=== PATIENT | male | born 1950 | race Two or more races ===

== ENCOUNTER 2024-07-05 21:56 | Inpatient (IN) | payer OTHER ==
[~2024-07-05] VITALS: Ht 175.3 cm; Wt 87.3 kg
--- NOTE | 2024-07-05 22:28 | ED.PDOC ---
Altered Mental Status HPI Comments 73-year-old male who came to ER via EMS for altered level consciousness. Per EMS, patient resides at a [facility], does have history of dementia and diabetes. At around noon today, patient had a ground level fall, unwitnessed, given morphine for the pain. Shortly afterwards patient noted to be more altered than usual, progressively worsening, to the point that he became unresponsive to verbal stimuli. Upon arrival of paramedics, patient is still unresponsive, so patient was given 2mg + 2mg of Narcan while en route to the ER Chief Complaint: ALOC Time Seen by MD: 22:34 Reviewed Notes: Crystal Mounter Notes Allergies: Coded Allergies: NO KNOWN ALLERGIES (Unverified , 07/05/24) Information Source: Emergency Med Personnel Mode of Arrival: EMS Severity: Unable to Care for Self, Unresponsive Timing: Hours Duration: Since onset Prehospital treatment: Oxygen, Treatment Quality: Decreased Alertness, Change in Behavior Recent: Trauma History of: Dementia Past Medical History PAST MEDICAL HISTORY: AFIB, Dementia, DM Surgical History: Unobtainable Family History Family History: Unobtainable Social History Smoker: Unobtainable Alcohol: Unobtainable Drugs: Unobtainable Lives In: Assisted Care Unable to Obtain due to: Altered Mental Status, Dementia Physical Exam General Appearance: No Apparent Distress, Normal HEENT: Normal ENT Inspection, Pharynx Normal, TMs Normal Neck: Full Range of Motion, Non-Tender, Normal, Normal Inspection Respiratory: Chest Non-Tender, Lungs Clear, No Accessory Muscle Use, No Respiratory Distress, Normal Breath Sounds Cardiovascular: No Edema, No JVD, No Murmur, No Gallop, Normal Peripheral Pulses, Regular Rate/Rhythm Breast Exam: Deferred Gastrointestinal: No Organomegaly, Non Tender, No Pulsatile Mass, Normal Bowel Sounds, Soft Genitalia: Deferred Pelvic: Deferred Rectal: Deferred Extremities: No calf tenderness, Normal capillary refill, Normal inspection, Normal range of motion, Non-tender, No pedal edema Musculoskeletal : Apperance: Normal Neurologic: Alert, debt and budget counselor II-XII nml as Tested, No Motor Deficits, Normal Affect, Normal Mood, No Sensory Deficits Cerebellar Function: Normal Reflexes: Normal Skin: Dry, Normal Color, Warm Lymphatic: No Adenopathy Was a procedure done? Was a procedure done?: No Differential Diagnosis (ALOC) Differential Diagnosis: Encephalopathy, Closed Head Injury, CVA, Other (Dementia) X-Ray, Labs, Meds, VS Vital Signs Date Time Temp Pulse Resp B/P (MAP) Pulse Ox O2 Delivery O2 Flow Rate FiO2 07/06/24 00:15 90 13 69/44 (52) 97 07/06/24 00:00 88 12 65/44 (51) 97 07/05/24 23:45 91 11 73/46 (55) 07/05/24 23:33 95 11 97 Simple Mask* 6 50 07/05/24 23:30 92 13 73/50 (58) 98 07/05/24 23:10 96 16 59/40 (46) 07/05/24 23:00 108 14 69/43 (52) 07/05/24 22:43 96.9 125 18 100/69 (79) 91 96.9 07/05/24 21:58 152 07/05/24 21:56 98.5 144 16 100/64 (76) 96 98.5 Lab Test 07/05/24 23:15 07/05/24 22:25 Range/Units Troponin I High Sensitivity 31 32 </=54 ng/L White Blood Count 7.8 4.4-10.8 10^3/uL Red Blood Count 4.87 4.5-5.90 10^6/uL Hemoglobin 15.3 13.5-17.5 g/dL Hematocrit 46.3 41.0-53.0 % Mean Corpuscular Volume 95.1 80.0-100.0 fL Mean Corpuscular Hemoglobin 31.4 28.0-32.0 pg Mean Corpuscular Hemoglobin Concent 33.0 32.0-36.0 g/dL Red Cell Distribution Width 15.3 H 11.8-14.3 % Platelet Count 208 140-450 10^3/uL Mean Platelet Volume 8.3 6.9-10.8 fL Neutrophils (%) (Auto) 87.5 H 37.0-80.0 % Lymphocytes (%) (Auto) 7.2 L 10.0-50.0 % Monocytes (%) (Auto) 4.7 0.0-12.0 % Eosinophils (%) (Auto) 0.2 0.0-7.0 % Basophils (%) (Auto) 0.4 0.0-2.0 % Neutrophils # (Auto) 6.8 1.6-8.6 10 ^3/uL Lymphocytes # (Auto) 0.6 0.4-5.4 10 ^3/uL Monocytes # (Auto) 0.4 0-1.3 10 ^3/uL Eosinophils # (Auto) 0 0-0.8 10 ^3/uL Basophils # (Auto) 0 0-0.2 10 ^3/uL Nucleated Red Blood Cells 0.1 % Sodium Level 137 136-145 mmol/L Potassium Level 3.5 3.5-5.1 mmol/L Chloride Level 99 98-107 mmol/L Carbon Dioxide Level 23 20-31 mmol/L Anion Gap 15 5-15 Blood Urea Nitrogen 13 9-23 mg/dL Creatinine 1.37 H 0.700-1.30 mg/dL Glomerular Filtration Rate Calc 55 >90 mL/min BUN/Creatinine Ratio 9.5 L 10.0-20.0 Serum Glucose 145 H 74-106 mg/dL Lactic Acid Level 2.5 *H 0.4-2.0 mmol/L Calcium Level 9.4 8.7-10.4 mg/dL Total Bilirubin 0.8 0.2-1.0 mg/dL Aspartate Amino Transferase (AST) 22 13-40 U/L Alanine Aminotransferase (ALT) < 9 7-40 U/L Alkaline Phosphatase 173 H 46-116 U/L B-Type Natriuretic Peptide 377.58 0-100 pg/mL Total Protein 6.6 5.7-8.2 g/dL Albumin 3.6 3.2-4.8 g/dL Current Medications Medications (Trade) Dose Ordered Sig/Dianna Route Start Time Stop Time Status Last Admin Sodium Chloride 2,000 ml @ 1,000 mls/hr Q2H ONCE IV 07/05/24 23:00 07/06/24 00:59 07/05/24 23:00 Cefepime HCl 50 ml @ 12.5 mls/hr ONCE ONCE IV 07/05/24 23:45 07/06/24 03:44 07/06/24 00:08 Vancomycin HCl 200 ml @ 200 mls/hr ONCE ONCE IV 07/05/24 23:45 07/06/24 00:44 07/06/24 00:28 Time of 1ST Reevaluation: 22:27 Reevaluation 1ST: Unchanged Patient Education/Counseling: Diagnosis, Treatment, Pt Unresponsive (To verbal stimuli) Family Education/Counseling: No Family Present Departure 1 Departure Time of Disposition: 00:40 (Patient presents from SNF with worsening mental status generalized weakness and hypotension. Discussed with the family and that they want the patient to be DNR DNI without any procedures including central line placement. They are okay with peripheral pressor support fluids and antibiotics.) Impression: Primary Impression: Metabolic encephalopathy Additional Impression: Hypotension Qualified Codes: I95.9 - Hypotension, unspecified Disposition: 09 ADMITTED INPATIENT Admit to: ICU Condition: Critical Critical Care Note Critical Care Time?: Yes Critical care comment: Hypotension Authorized and Performed by: José Miguel Mart MD Total critical care time: Approximately 119 minutes Due to a high probability of clinically significant, life threatening deterioration, the patient required my highest level of preparedness to intervene emergently and I personally spent this critical care time directly and personally managing the patient. This critical care time included obtaining a history; examining the patient; pulse oximetry; ordering and review of studies; arranging urgent treatment with development of a management plan; evaluation of patient's response to treatment; frequent reassessment; and, discussions with other providers. This critical care time was performed to assess and manage the high probability of imminent, life-threatening deterioration that could result in multi-organ failure. It was exclusive of separately billable procedures and treating other patients and teaching time. Please see my other sections and the rest of the note for further information on patient assessment and treatment. Stability Stability form required: No Heart Score Heart Score: Heart Score Response (Comments) Value History N/A 0 EKG N/A 0 Age N/A 0 Risk Factors N/A 0 Troponin N/A 0 Total 0 I personally scribed for JOSÉ MIGUEL MART MD ([email or web address]) on 07/05/24 at 22:28. Electronically submitted by Scott Reynoso ([email or web address]). I personally scribed for JOSÉ MIGUEL MART MD ([email or web address]) on 07/05/24 at 22:34. Electronically submitted by Scott Reynoso ([email or web address]). JOSÉ MIGUEL MART MD July 05, 2024 22:28
[2024-07-05] MEDS: SODIUM CHLORIDE 0.9% 2,000 ML IV ONE (23:00)
[2024-07-05 23:01] LABS: Basophils # (auto) 0 10 ^3/uL (0-0.2); Basophils % (auto) 0.4 % (0.0-2.0); Eosinophils # (auto) 0 10 ^3/uL (0-0.8); Eosinophils % (auto) 0.2 % (0.0-7.0); Hematocrit 46.3 % (41.0-53.0); Hemoglobin 15.3 g/dL (13.5-17.5); Lymphocytes # (auto) 0.6 10 ^3/uL (0.4-5.4); Lymphocytes % (auto) 7.2 % (10.0-50.0); Mean Corpuscular Hemoglobin 31.4 pg (28.0-32.0); Mean Corpuscular Volume 95.1 fL (80.0-100.0); Monocytes # (auto) 0.4 10 ^3/uL (0-1.3); Monocytes % (auto) 4.7 % (0.0-12.0); Neutrophils # (auto) 6.8 10 ^3/uL (1.6-8.6); Neutrophils % (auto) 87.5 % (37.0-80.0); Nucleated Red Blood Cells % 0.1 %; Platelet Count (auto) 208 10^3/uL (140-450); Red Blood Cells 4.87 10^6/uL (4.5-5.90); Red Cell Distribution Width 15.3 % (11.8-14.3); White Blood Cell 7.8 10^3/uL (4.4-10.8)
--- NOTE | 2024-07-05 23:07 | DVH ---
CT HEAD WITHOUT CONTRAST INDICATION: ams COMPARISON: None TECHNIQUE: CT of the head without intravenous contrast. RADIATION DOSE: CTDIvol: 57 mGy, DLP: 1126 mGy*cm FINDINGS: There is no evidence of acute intracranial hemorrhage, extra-axial collection, mass effect, midline s hift, herniation or hydrocephalus. The ventricles, sulci and cisterns are age appropriate. The porter -white differentiation is intact. The visualized paranasal sinuses and mastoid air cells are clear. The surrounding soft tissues and osseous structures are unremarkable. IMPRESSION: 1. No evidence of acute intracranial hemorrhage, mass effect or hydrocephalus.
--- NOTE | 2024-07-05 23:09 | DVH ---
CHEST RADIOGRAPH Indication: ams Technique: Single frontal view of the chest was obtained COMPARISON: None FINDINGS: Lines and Tubes: None Lungs: Nonspecific opacity at the right lung base which may represent pneumonia. Pleura: No effusion. No pneumothorax. Cardiomediastinal contours: Unremarkable Bones: Unremarkable IMPRESSION: Opacity at the right lung base which may represent pneumonia.
[2024-07-05 23:12] LABS: Anion Gap 15 (5-15); BUN/Creatinine Ratio 9.5 (10.0-20.0); Blood Urea Nitrogen 13 mg/dL (9-23); Calcium 9.4 mg/dL (8.7-10.4); Carbon Dioxide 23 mmol/L (20-31); Chloride 99 mmol/L (98-107); Potassium 3.5 mmol/L (3.5-5.1); Sodium 137 mmol/L (136-145); Total Protein 6.6 g/dL (5.7-8.2)
[2024-07-05 23:13] LABS: Alanine Aminotransferase < 9 U/L (7-40); Albumin 3.6 g/dL (3.2-4.8); Alkaline Phosphatase 173 U/L (46-116); Aspartate Aminotransferase 22 U/L (13-40); Bilirubin, Total 0.8 mg/dL (0.2-1.0); Glucose 145 mg/dL (74-106)
[2024-07-05 23:16] LABS: Lactic Acid w/Reflex 2.5 mmol/L (0.4-2.0)
[2024-07-05 23:33] VITALS: PULSE 95; RESP 11; O2SAT 97
[2024-07-06] VITALS (24 sets, daily range): BP systolic 81–113; BP diastolic 55–75; PULSE 88–127; RESP 9–30; TEMP 98–98.2; O2SAT 92–100
[2024-07-06] MEDS: CEFEPIME 2GM/50ML NS 50 ML IV ONE (00:08)
[2024-07-06] MEDS: VANCOMYCIN 1GM/200ML PM 200 ML IV ONE ×2 (00:28→01:44)
[2024-07-06] MEDS: NOREPINEPHRINE 8 MG/250ML KIT 250 ML IV SCH (01:00)
[2024-07-06] MEDS ORDERED: ONDANSETRON HCL 4 MG/2 ML VIAL IV PRN (02:00)
[2024-07-06] MEDS ORDERED: DEXTROSE (50%) 50ML SYRG IV PRN (02:00)
[2024-07-06] MEDS ORDERED: DOCUSATE SOD 100 MG CAP PO PRN (02:00)
[2024-07-06] MEDS ORDERED: VANCOMYCIN PER PHARMACY 0 MG IV SCH (02:00)
--- NOTE | 2024-07-06 03:07 | ECG ---
[facility] Test Date: 2024-07-05 Test Time: 21:58:18 Pat Name: CABRERA MEJIA Department: ED Room: 0250T Gender: M [employer] Salesperson: arron : 1950 Requested By: JOSÉ MIGUEL DAMON Order Number: [id number] Reading MD: Nicolas Franz Measurements Intervals [place] Rate: 152 P: 0 [place]: 0 QRS: 157 QRSD: 90 T: 195 QT: 293 QTc: 466 Interpretive Statements Atrial fibrillation with rapid V-rate Probable RVH w/ secondary repol abnormality Repolarization abnormality, prob rate related Electronically Signed On 07-10-2024 20:31:47 PDT by Nicolas Franz Please click the below link to view image of tracing.
[2024-07-06] MEDS: dilTIAZem 25 MG/5 ML VIAL IV ONE (04:12)
[2024-07-06] MEDS: AMIODARONE 360mg/200mL PREMIX 200 ML IV ONE (05:34)
[2024-07-06] MEDS: SODIUM CHLOR 0.9% PF (SALINE LOCK) 10ML VIAL/SYR IV SCH (06:10)
[2024-07-06] MEDS ORDERED: MORPHINE SULFATE INJ 2 MG/ml SYRG IV PRN (06:15)
[2024-07-06] MEDS ORDERED: NITROGLYCERIN 0.4 MG SL TAB SL PRN (06:15)
--- NOTE | 2024-07-06 06:29 | DVHHP2 ---
History of Present Illness Reason for Visit: Hypotension History of Present Illness The patient is a 73-year-old male with past medical history of dementia, AFib, and diabetes mellitus who presented to [facility] ED for evaluation of altered level of consciousness. As reported by EMS, patient resides at board and care facility had a ground level fall, unwitnessed, shortly afterwards patient noted to be more altered than usual, progressively get worse that prompted this visit. Patient was seen and evaluated in the ED, laboratory data shows WBC 7.8, platelets 208, sodium 137, potassium 3.5, BUN 13, creatinine 1.37, glucose 145, lactic acid 2.5, troponin 32, BNP 377.58, blood pressure 65/44 trending up to 146/84, heart rate 152 trending down to 92, temperature 98.5� F, O2 saturation 97% on oxygen. Chest x-ray revealing opacity at the right lung base which may represent pneumonia. Patient was started on IV Levophed, IV antibiotic regimen vancomycin, please see medication orders section in the computer. On my assessment, patient remains altered, denies chest pain, no headache, no dizziness, no diaphoresis, currently on oxygen, no nausea, no vomiting, no fever, no chills. Patient was admitted for further evaluation and medical management. Past Medical History AFIB, Dementia, DM Past Surgical History Unobtainable Family History Reviewed, noncontributory to the management of this case. Past Social History The patient lives at assisted living home, no history of smoking, alcohol or illicit drugs abuse. Review of Systems Constitutional: Yes: Weakness; No: Fever, Chills, Sweats, Malaise, Other Eyes: No: Pain, Vision change, Conjunctivae inflammation, Eyelid inflammation, Other, Redness ENT: No: Ear pain, Ear discharge, Nose pain, Nose discharge, Nose congestion, Mouth pain, Mouth swelling, Throat pain, Throat swelling, Other Respiratory: No: Cough, Dry, Shortness of breath, SOB with excertion, Wheezing, Hemoptysis, Pleuritic Pain, Sputum, Wheezing, Other Cardiovascular: No: Chest Pain, Palpitations, Orthopnea, Paroxysmal Noc. Dyspnea, Edema, Lt Headedness, Other Gastrointestinal: No: Nausea, Vomiting, Abdominal Pain, Diarrhea, Constipation, Melena, Hematochezia, Other Genitourinary: No Dysuria, No Frequency, No Incontinence, No Hematuria, No Retention; Other (Crum catheter in place) Musculoskeletal: No: other, neck pain, shoulder pain, arm pain, back pain, hand pain, leg pain, foot pain Skin: No: Rash, Lesions, Jaundice, Bruising, Other Neurological: Confusion; No: Weakness, Numbness, Incoordination, Change in speech, Seizures, Other Allergies: Coded Allergies: NO KNOWN ALLERGIES (Unverified , 07/05/24) Medications Current Medications Medications Dose Ordered Sig/Dianna Route Start Time Stop Time Status Last Admin Dose Admin Norepinephrine Bitartrate 250 ml @ 3.75 mls/hr Q24H IV 07/06/24 00:45 07/06/24 01:00 3.75 MLS/HR Ceftriaxone Sodium 50 ml @ 100 mls/hr DAILY@09 IV 07/06/24 09:00 Vancomycin HCl 0 ml @ 0 mls/hr UD IV 07/06/24 02:00 UNV Aspirin 81 mg DAILY PO 07/06/24 10:00 Diagnostic Test (Pha) 1 strip ACHS 07/06/24 07:00 Insulin Human Regular ACHS SC 07/06/24 07:00 Dextrose 50 ml UD PRN IV 07/06/24 02:00 Sodium Chloride 10 ml Q8HR IV 07/06/24 06:00 Acetaminophen/ Hydrocodone Bitart 1 tab Q4HP PRN PO 07/06/24 02:00 Ondansetron HCl 4 mg Q4HP PRN IV 07/06/24 02:00 Docusate Sodium 100 mg BIDPRN PRN PO 07/06/24 02:00 Acetaminophen 650 mg Q6HP PRN PO 07/06/24 02:00 Exam Vital Signs Vital Signs Date Time Temp Pulse Resp B/P (MAP) Pulse Ox O2 Delivery O2 Flow Rate FiO2 07/06/24 05:45 138 18 105/55 (72) 97 07/05/24 23:33 Simple Mask* 6 50 07/05/24 22:43 96.9 96.9 General Appearance: Alert, Cooperative, No acute distress, Other (Oriented x2) HEENT: Atraumatic, PERRLA, EOMI, Mucous membr. moist/pink Respiratory: Normal air movement, Other (Diminished breath sounds) Cardiovascular: Regular rate, Normal S1, Normal S2, No murmurs Abdominal: Normal bowel sounds, Soft, No tenderness, No hepatospenomegaly, No masses Extremities: No clubbing, No cyanosis, No edema, Normal pulses, No tenderness/swelling Skin: No rashes, No breakdown, No significant lesion Neuro: Normal tone, Sensation intact, Cranial nerves 3-12 NL, Reflexes 2+, Other (Generalized weakness) Psych/Mental Status: Mood NL, Other (Altered mental status) Labs/Xrays Labs Test 07/05/24 23:15 07/05/24 22:25 Range/Units Troponin I High Sensitivity 31 </=54 ng/L White Blood Count 7.8 4.4-10.8 10^3/uL Red Blood Count 4.87 4.5-5.90 10^6/uL Hemoglobin 15.3 13.5-17.5 g/dL Hematocrit 46.3 41.0-53.0 % Mean Corpuscular Volume 95.1 80.0-100.0 fL Mean Corpuscular Hemoglobin 31.4 28.0-32.0 pg Mean Corpuscular Hemoglobin Concent 33.0 32.0-36.0 g/dL Red Cell Distribution Width 15.3 H 11.8-14.3 % Platelet Count 208 140-450 10^3/uL Mean Platelet Volume 8.3 6.9-10.8 fL Neutrophils (%) (Auto) 87.5 H 37.0-80.0 % Lymphocytes (%) (Auto) 7.2 L 10.0-50.0 % Monocytes (%) (Auto) 4.7 0.0-12.0 % Eosinophils (%) (Auto) 0.2 0.0-7.0 % Basophils (%) (Auto) 0.4 0.0-2.0 % Neutrophils # (Auto) 6.8 1.6-8.6 10 ^3/uL Lymphocytes # (Auto) 0.6 0.4-5.4 10 ^3/uL Monocytes # (Auto) 0.4 0-1.3 10 ^3/uL Eosinophils # (Auto) 0 0-0.8 10 ^3/uL Basophils # (Auto) 0 0-0.2 10 ^3/uL Nucleated Red Blood Cells 0.1 % Sodium Level 137 136-145 mmol/L Potassium Level 3.5 3.5-5.1 mmol/L Chloride Level 99 98-107 mmol/L Carbon Dioxide Level 23 20-31 mmol/L Anion Gap 15 5-15 Blood Urea Nitrogen 13 9-23 mg/dL Creatinine 1.37 H 0.700-1.30 mg/dL Glomerular Filtration Rate Calc 55 >90 mL/min BUN/Creatinine Ratio 9.5 L 10.0-20.0 Serum Glucose 145 H 74-106 mg/dL Lactic Acid Level 2.5 *H 0.4-2.0 mmol/L Calcium Level 9.4 8.7-10.4 mg/dL Total Bilirubin 0.8 0.2-1.0 mg/dL Aspartate Amino Transferase (AST) 22 13-40 U/L Alanine Aminotransferase (ALT) < 9 7-40 U/L Alkaline Phosphatase 173 H 46-116 U/L B-Type Natriuretic Peptide 377.58 0-100 pg/mL Total Protein 6.6 5.7-8.2 g/dL Albumin 3.6 3.2-4.8 g/dL PATIENT: CABRERA MEJIA ACCT: [id number] UNIT: [id number] : 1950 LOC: ER ROOM / BED: / AGE / SEX: 73 / M ADM STATUS: REG ER SERVICE 06 ORDERING PHYSICIAN: JOSÉ MIGUEL DAMON MD PROCEDURE(s): HWOCT - HEAD WITHOUT CONTRAST REASON: [facility] ORDER NUMBER(s): [id number], ACCESSION NUMBER(s): [id number] CT HEAD WITHOUT CONTRAST INDICATION: ams COMPARISON: None TECHNIQUE: CT of the head without intravenous contrast. RADIATION DOSE: CTDIvol: 57 mGy, DLP: 1126 mGy*cm FINDINGS: There is no evidence of acute intracranial hemorrhage, extra-axial collection, mass effect, midline shift, herniation or hydrocephalus. The ventricles, sulci and cisterns are age appropriate. The porter-white differentiation is intact. The visualized paranasal sinuses and mastoid air cells are clear. The surrounding soft tissues and osseous structures are unremarkable. IMPRESSION: 1. No evidence of acute intracranial hemorrhage, mass effect or hydrocephalus. ORDERING PHYSICIAN: JOSÉ MIGUEL DAMON MD PROCEDURE(s): CXRP - CHEST PORTABLE REASON: [facility] ORDER NUMBER(s): [id number], ACCESSION NUMBER(s): [id number] CHEST RADIOGRAPH Indication: ams Technique: Single frontal view of the chest was obtained COMPARISON: None FINDINGS: Lines and Tubes: None Lungs: Nonspecific opacity at the right lung base which may represent pneumonia. Pleura: No effusion. No pneumothorax. Cardiomediastinal contours: Unremarkable Bones: Unremarkable IMPRESSION: Opacity at the right lung base which may represent pneumonia. Assessment/Plan Assessment/Plan Metabolic encephalopathy Hypotension Atrial fibrillation Altered mental status Generalized weakness Hypotension, unspecified Pneumonia, unspecified organisms Plan 1. Admit to intensive care unit 2. Breathing treatment 3. Pain control management 4. Management of fluids and electrolytes 5. Consultation for Cardiology 6. Diagnostic tests chest x-ray 7. DVT prophylaxis-on aspirin 8. Repeat labs CBC, CMP in a.m. 9. Continue with current medical management 10. Treatment plan discussed with patient and RN. Patient verbalized understanding. Plan discussed with: Patient, Other (RN) My Orders Orders - SILVIA PENDLETON DNP Procedure Category Date Status Time Complete Blood Count LAB 07/06/24 Logged 04:00 Ceftriaxone 1gm/50ml PHA 07/06/24 In Process D5w (Rocephin) 09:00 Vancomycin Per PHA 07/06/24 Pending Pharmacy 02:00 Aspirin Tablet PHA 07/06/24 In Process 10:00 Consistent DIET 07/06/24 Transmitted Carb(Ccho)Diabetes Breakfast * Cardiology Consult CONS 07/06/24 Transmitted 01:58 Glucose Blood PHA 07/06/24 In Process (Accu-Chek Comfort 07:00 Insulin R (Human) PHA 07/06/24 In Process (Insulin R) 07:00 Dextrose 50% Syringe PHA 07/06/24 In Process 02:00 Allergies TATE 07/06/24 In Process 01:58 Code Status CODE 07/06/24 Transmitted 01:58 Sodium Chloride Lock PHA 07/06/24 In Process (Saline Lock Ns) 06:00 Oxygen Per Hour RT 07/06/24 Transmitted 01:58 Hydrocodone-Acet PHA 07/06/24 In Process 5/325mg Tab ([place]nyder 02:00 Ondansetron Hcl PHA 07/06/24 In Process (Zofran) 02:00 Docusate Sodium PHA 07/06/24 In Process Capsule (Colace 02:00 Fall Risk Precautions TATE 07/06/[address] 01:58 Complete Blood Count LAB 07/07/24 Verified 04:00 Comprehensive LAB 5/5/25 Verified Metabolic Panel 04:00 Echo 2d Mode Cardiac US 07/06/24 Logged DOP 01:58 Condition: Serious TATE 07/06/24 In Process 01:58 Acetaminophen Tablet [facility] 07/06/24 In Process (Tylenol Tablet) 02:00 Maintain Bed Rest [facility] 07/06/24 In Process 01:58 Sequential [facility] 07/06/24 In Process Compression Device Amiodarone PHA 07/06/24 In Process 360mg/200ml Premix 05:30 Amiodarone [facility] 07/06/24 In Process 360mg/200ml Premix 11:30 Admit ADMIT 07/06/24 Verified 06:04 Nitroglycerin [facility] 07/06/24 Verified Sublingual (Ntrostat 06:15 Morphine Sulfate [facility] 07/06/24 Verified Injection 06:15 Notify Md Of Changes [facility] 07/06/24 Verified From Base 06:04 Body Painter For [facility] 07/06/24 Verified 24 Hours 06:04 Emergency Dysrhythmia [facility] 07/06/24 Verified Protocol 06:04 Rhythm Strips Once [facility] 07/06/24 Verified Every Shift 06:04 Oxygen By Nasal 07/06/24 Verified Cannula 06:04 Problem List: (1) Metabolic encephalopathy (2) Altered mental status (3) Generalized weakness (4) Atrial fibrillation (5) Hypotension (6) Hypotension, unspecified (7) Pneumonia, unspecified organism Date of Service: July 06, 2024 Billing Provider: SILVIA PENDLETON DNP Common Visit Codes: [id number] INP/OBS CARE (HIGH) SILVIA PENDLETON DNP July 06, 2024 06:29
[2024-07-06] MEDS: InsuLIN REG 1unit/0.01ml Soln (100units/ml) SC SCH (06:43)
[2024-07-06] MEDS: ACCU-CHEK COMFORT CURVE STRIP VI SCH (06:43)
[2024-07-06 06:46] LABS: Basophils # (auto) 0.2 10 ^3/uL (0-0.2); Basophils % (auto) 1.8 % (0.0-2.0); Eosinophils # (auto) 0 10 ^3/uL (0-0.8); Eosinophils % (auto) 0.1 % (0.0-7.0); Hematocrit 41.9 % (41.0-53.0); Hemoglobin 13.9 g/dL (13.5-17.5); Lymphocytes # (auto) 0.4 10 ^3/uL (0.4-5.4); Lymphocytes % (auto) 3.2 % (10.0-50.0); Mean Corpuscular Hemoglobin 31.5 pg (28.0-32.0); Mean Corpuscular Hgb Conc. 33.1 g/dL (32.0-36.0); Mean Corpuscular Volume 94.9 fL (80.0-100.0); Monocytes # (auto) 0.5 10 ^3/uL (0-1.3); Monocytes % (auto) 4.6 % (0.0-12.0); Neutrophils % (auto) 90.3 % (37.0-80.0); Nucleated Red Blood Cells % 0.1 %; Platelet Count (auto) 227 10^3/uL (140-450); Red Blood Cells 4.41 10^6/uL (4.5-5.90); Red Cell Distribution Width 15.4 % (11.8-14.3); White Blood Cell 11.1 10^3/uL (4.4-10.8)
[2024-07-06 08:56] LABS: Urine Bacteria FEW /hpf (None Seen); Urine Blood 1+ /uL (Negative); Urine Clarity Clear (Clear); Urine Color Yellow (Yellow); Urine Hyaline Cast FEW /lpf (0 - 2); Urine Protein, UAD TRACE (Negative); Urine Specific Gravity 1.018 (1.001-1.035); Urine Squamous Epithelial Cell None Seen /hpf (<5); Urine Urobilinogen Normal (Negative); Urine WBC 13 /HPF (0-3)
--- NOTE | 2024-07-06 09:42 | DVHINCON2 ---
Date Seen: July 06, 2024 Referring Physician KENNY Guerra Reason for Consultation Hypotension History of Present Illness This 73-year-old male presents in the ED via EMS with a chief complaint of ALOC. In the emergency department the patient is found to be in sepsis, hypotension, and AFib with RVR for which cardiology consult is initiated. Upon assessment, the patient remained altered. Twelve lead ECG revealing AFib with RVR, the patient is currently on amiodarone drip and vasopressors for BP support. Serial troponin were negative. Chest x-ray revealing pneumonia. Nursing staff reports history of prostate cancer, dementia, type 2 diabetes, and AFib. Patient is also DNR/DNI. Past Medical History As stated in HPI Past Surgical History Unknown Family History Unknown Social History Unknown Allergies: Coded Allergies: NO KNOWN ALLERGIES (Unverified , 07/05/24) Current Medications Current Medications Medications (Trade) Dose Ordered Sig/Dianna Route PRN Reason Start Time Stop Time Status Last Admin Norepinephrine Bitartrate 250 ml @ 3.75 mls/hr Q24H IV 07/06/24 00:45 07/06/24 01:00 Ceftriaxone Sodium 50 ml @ 100 mls/hr DAILY@09 IV 07/06/24 09:00 Vancomycin HCl 0 ml @ 0 mls/hr UD IV 07/06/24 02:00 UNV Aspirin 81 mg DAILY PO 07/06/24 10:00 Diagnostic Test (Pha) (Accu-Chek Comfort Curve T) 1 strip ACHS 07/06/24 07:00 07/06/24 06:43 Insulin Human Regular (InsuLIN R) ACHS SC 07/06/24 07:00 Dextrose 50 ml UD PRN IV Blood Sugar LESS THAN 60 07/06/24 02:00 Sodium Chloride (Saline Lock Ns) 10 ml Q8HR IV 07/06/24 06:00 07/06/24 06:10 Acetaminophen/ Hydrocodone Bitart ([place] 5/325MG Tab) 1 tab Q4HP PRN PO MODERATE PAIN (4-6 PAIN SCALE) 07/06/24 02:00 Ondansetron HCl (Zofran) 4 mg Q4HP PRN IV NAUSEA / VOMITING 07/06/24 02:00 Docusate Sodium (Colace Capsule) 100 mg BIDPRN PRN PO FOR CONSTIPATION 07/06/24 02:00 Acetaminophen (Tylenol Tablet) 650 mg Q6HP PRN PO PAIN SCALE 1-3 OR TEMP>100.4 07/06/24 02:00 Nitroglycerin (Ntrostat Sublingual) 0.4 mg Q5MINP PRN SL FOR CHEST PAIN 07/06/24 06:15 Morphine Sulfate 2 mg Q30M PRN IV FOR CHEST PAIN 07/06/24 06:15 Review of Systems Constitutional: Altered Ears, Nose, & Throat: No symptom reported Eyes: No symptom reported Neurological: ALOC Pulmonary/Respiratory: No symptom reported Cardiovascular: AFib with RVR Gastrointestinal: No symptom reported Genitourinary: No symptom reported Musculoskeletal: No symptom reported Skin: No symptom reported Psychiatric: No symptom reported Endocrine: No symptom reported Hematologic/Lymphatic: No symptom reported Vital Signs Vital Signs Date Time Temp Pulse Resp B/P (MAP) Pulse Ox O2 Delivery O2 Flow Rate FiO2 07/06/24 08:56 88/64 07/06/24 08:00 130 07/06/24 07:45 18 97 Nasal Cannula* 2 28 07/06/24 07:41 97.9 97.9 Physical Exam INITIAL VITAL SIGNS: Reviewed by me GENERAL: Altered HEAD: Head is normocephalic and atraumatic. EYES: EOMI, PERRL. ENT: Moist mucous membranes. NECK: Supple, No masses, Full range of motion. RESPIRATORY: Diminished lung sounds CV: AFib with RVR. No edema. Hypotension GI/: Active bowel sounds, soft, nondistended, nontender. No guarding. No rebound. No masses. No CVA tenderness. INTEGUMENTARY: Warm and dry. No obvious rashes. NEUROLOGIC: Altered Labs/Diagnostic Data Labs Test 07/06/24 08:45 07/06/24 06:42 07/06/24 05:58 07/05/24 23:15 Range/Units Urine Color Yellow Yellow Urine Clarity Clear Clear Urine pH 6.0 5.0-9.0 Urine Specific [place] 1.018 1.001-1.035 Urine Protein Trace H Negative Urine Ketones Trace Negative Urine Blood 1+ H Negative /uL Urine Nitrite Negative Negative Urine Bilirubin Negative Negative Urine Urobilinogen Normal Negative mg/dL Urine Leukocyte Esterase Negative Negative /uL Urine RBC 7 0 - 3 /hpf Urine Microscopic WBC 13 H 0-3 /HPF Urine Squamous Epithelial Cells None seen <5 /hpf Urine Bacteria Few H None Seen /hpf Urine Hyaline Casts Few 0 - 2 /lpf Urine Glucose Normal Normal mg/dL POC Glucose 174 H 70-106 mg/dl White Blood Count 11.1 #H 4.4-10.8 10^3/uL Red Blood Count 4.41 L 4.5-5.90 10^6/uL Hemoglobin 13.9 13.5-17.5 g/dL Hematocrit 41.9 41.0-53.0 % Mean Corpuscular Volume 94.9 80.0-100.0 fL Mean Corpuscular Hemoglobin 31.5 28.0-32.0 pg Mean Corpuscular Hemoglobin Concent 33.1 32.0-36.0 g/dL Red Cell Distribution Width 15.4 H 11.8-14.3 % Platelet Count 227 140-450 10^3/uL Mean Platelet Volume 8.3 6.9-10.8 fL Neutrophils (%) (Auto) 90.3 H 37.0-80.0 % Lymphocytes (%) (Auto) 3.2 L 10.0-50.0 % Monocytes (%) (Auto) 4.6 0.0-12.0 % Eosinophils (%) (Auto) 0.1 0.0-7.0 % Basophils (%) (Auto) 1.8 0.0-2.0 % Neutrophils # (Auto) 10.0 H 1.6-8.6 10 ^3/uL Lymphocytes # (Auto) 0.4 0.4-5.4 10 ^3/uL Monocytes # (Auto) 0.5 0-1.3 10 ^3/uL Eosinophils # (Auto) 0 0-0.8 10 ^3/uL Basophils # (Auto) 0.2 0-0.2 10 ^3/uL Nucleated Red Blood Cells 0.1 % Troponin I High Sensitivity 31 </=54 ng/L Test 07/05/24 22:25 Range/Units Sodium Level 137 136-145 mmol/L Potassium Level 3.5 3.5-5.1 mmol/L Chloride Level 99 98-107 mmol/L Carbon Dioxide Level 23 20-31 mmol/L Anion Gap 15 5-15 Blood Urea Nitrogen 13 9-23 mg/dL Creatinine 1.37 H 0.700-1.30 mg/dL Glomerular Filtration Rate Calc 55 >90 mL/min BUN/Creatinine Ratio 9.5 L 10.0-20.0 Serum Glucose 145 H 74-106 mg/dL Lactic Acid Level 2.5 *H 0.4-2.0 mmol/L Calcium Level 9.4 8.7-10.4 mg/dL Total Bilirubin 0.8 0.2-1.0 mg/dL Aspartate Amino Transferase (AST) 22 13-40 U/L Alanine Aminotransferase (ALT) < 9 7-40 U/L Alkaline Phosphatase 173 H 46-116 U/L B-Type Natriuretic Peptide 377.58 0-100 pg/mL Total Protein 6.6 5.7-8.2 g/dL Albumin 3.6 3.2-4.8 g/dL PROCEDURE(s): CXRP - CHEST PORTABLE REASON: ams ORDER NUMBER(s): [id number], ACCESSION NUMBER(s): [id number] CHEST RADIOGRAPH Indication: ams Technique: Single frontal view of the chest was obtained COMPARISON: None FINDINGS: Lines and Tubes: None Lungs: Nonspecific opacity at the right lung base which may represent pneumonia. Pleura: No effusion. No pneumothorax. Cardiomediastinal contours: Unremarkable Bones: Unremarkable IMPRESSION: Opacity at the right lung base which may represent pneumonia. Assessment AFib with RVR-- chads Vasc score 2, HAS BLED score 1 ?hx of Afib Sepsis, likely pneumonia Diabetes type 2 Dementia History of prostate cancer Plan/Recommendation (Dr. Simon ): Continue amiodarone drip, started on therapeutic Lovenox, should transition to DOAC and amiodarone PO on discharge. Monitor electrolytes and replete as needed. Obtain echocardiogram. Titrate off vasopressors given stable BP. Antibiotic for pneumonia. Medical management given DNR/DNI. This medical document was created using an electronic medical record system with voice recognition software and computerized dictation system. Although this document has been carefully reviewed, there might still be some phonetic and typographical errors. Occasional wrong-word or ``sound-alike�� substitutions may have occurred due to the inherent limitations of voice recognition software. These areas are purely typographical due to imperfections of the software programs and do not reflect any compromise in the patient's medical care. Please read the chart carefully and recognize, using context, where these substitutions have occurred. Plan discussed with: Patient Plan discussed with: Patient NYHA Physical activity limitations: NA Date of Service: July 06, 2024 Billing Provider: ANDERSON SIMON MD Cardiology Common Codes: NOT BILLABLE Cardiology Consultation Codes: [id number] CONSULT <60MIN [facility] [employer] July 06, 2024 09:42
[2024-07-06 09:47] LABS: LDL Cholesterol 74 mg/dL (< 100); Triglycerides 111 mg/dL (< 150)
[2024-07-06 09:49] LABS: Cholesterol 119 mg/dL (< 200)
[2024-07-06 10:01] LABS: HDL Cholesterol 24 mg/dL (40-59)
[2024-07-06] MEDS: cefTRIAXone 1GM/50ML D5W 50 ML IV SCH (10:35)
[2024-07-06] MEDS: MAGNESIUM SULFATE 1GM/100ML 100 ML IV ONE (10:58)
[2024-07-06] MEDS: ASPirin 81 mg TAB PO SCH (11:13)
[2024-07-06] MEDS: ENOXAPARIN SOD 80 MG/0.8ML SYRINGE SC SCH (11:13)
[2024-07-06] MEDS: AMIODARONE 360mg/200mL PREMIX 200 ML IV SCH (11:39)
--- NOTE | 2024-07-06 12:49 | DVHSR ---
APPROVED REPORT EXAM: Two-dimensional and M-mode echocardiogram with Doppler and color Doppler. Blood Pressure: 88/64 mmHg INDICATION Elevated BNP RISK FACTORS Height: 69, Weight: 180 DIMENSIONS LVDd4.2 (3.8-5.7cm)LA (2D)4.9 (1.9-4.0cm)Aortic Root3.7 (2.0-3.7cm) LVDs2.8 (2.5-4.0cm)LA (MM) (1.9-4.0cm)Aortic Cusp Exc1.5 (1.5-2.0cm) EF (%) 61.0 (55-70%)Rt. Atrium4.9 (1.9-4.0cm)Asc. Aorta cm IVSd1.3 (0.7-1.1cm)RV (D) (1.8-2.4cm) PWd1.2 (0.7-1.1cm) Mitral Valve MitralMitral Stenosis E wave0.53m/sMV Mean GR.mmHg E/A ratio0.02D MVAcm2 Aortic Valve Aortic ValveAortic Stenosis V10.82m/Angel Mean GR.3mmHg V21.18m/Angel Peak GR.6mmHg LVOT Diameter2.0 (1.8-2.4cm)Doppler AVA2.18cm2 Pulmonic Valve V21.00m/s Tricuspid Valve TR Velocity3.05m/s [id number] Other Information Technically limited study due to high heart rate. Patient unable to turn on his side. Patient laying flat on his back. Conclusion lvef 60% by visual estimate arrhythmia noted during study normal rv function left atrium enlarged moderate pericardial fat pad noted
--- NOTE | 2024-07-06 14:30 | DVHPN2 ---
Reviewed: Care Plan, H&P, Labs, Medications, Previous Orders, Radiology Changes from previous H/P or p: No Changes Eyes: No Pain, No Vision change, No Conjunctivae inflammation, No Eyelid inflammation, No Other, No Redness ENT: No Ear pain, No Ear discharge, No Nose pain, No Nose discharge, No Nose congestion, No Mouth pain, No Mouth swelling, No Throat pain, No Throat swelling, No Other Cardiovascular: No Chest Pain, No Palpitations, No Orthopnea, No Paroxysmal Noc. Dyspnea, No Edema, No Lt Headedness, No Other Respiratory: No Cough, No Dry, No Shortness of breath, No SOB with excertion, No Wheezing, No Hemoptysis, No Pleuritic Pain, No Sputum, No Other Gastrointestinal: No Nausea, No Vomiting, No Abdominal Pain, No Diarrhea, No Constipation, No Melena, No Hematochezia, No Other Genitourinary: No Dysuria, No Frequency, No Incontinence, No Hematuria, No Retention; Other (Crum catheter in place) Musculoskeletal: No other, No neck pain, No shoulder pain, No arm pain, No back pain, No hand pain, No leg pain, No foot pain Skin: No Rash, No Lesions, No Jaundice, No Bruising, No Other Objective Vitals Vital Signs Date Time Temp Pulse Resp B/P (MAP) Pulse Ox O2 Delivery O2 Flow Rate FiO2 07/06/24 12:00 95 07/06/24 08:56 88/64 07/06/24 07:45 18 97 Nasal Cannula* 2 28 07/06/24 07:41 97.9 97.9 Intake/Output Intake and Output 07/06/24 07:00 Intake Total 2270.83 ml Balance 2270.83 ml Intake IV Total 2270.83 ml Medications Current Medications Medications Dose Ordered Sig/Dianna Route Start Time Stop Time Status Last Admin Dose Admin Norepinephrine Bitartrate 250 ml @ 3.75 mls/hr Q24H IV 07/06/24 00:45 07/06/24 01:00 3.75 MLS/HR Ceftriaxone Sodium 50 ml @ 100 mls/hr DAILY@09 IV 07/06/24 09:00 07/06/24 10:35 100 MLS/HR Vancomycin HCl 0 ml @ 0 mls/hr UD IV 07/06/24 02:00 Aspirin 81 mg DAILY PO 07/06/24 10:00 5/4/25 11:13 81 MG Diagnostic Test (Pha) 1 strip ACHS 07/06/24 07:00 07/06/24 11:56 1 STRIP Insulin Human Regular ACHS SC 07/06/24 07:00 Dextrose 50 ml UD PRN IV 07/06/24 02:00 Sodium Chloride 10 ml Q8HR IV 07/06/24 06:00 07/06/24 06:10 10 ML Acetaminophen/ Hydrocodone Bitart 1 tab Q4HP PRN PO 07/06/24 02:00 Ondansetron HCl 4 mg Q4HP PRN IV 07/06/24 02:00 Docusate Sodium 100 mg BIDPRN PRN PO 07/06/24 02:00 Acetaminophen 650 mg Q6HP PRN PO 07/06/24 02:00 Nitroglycerin 0.4 mg Q5MINP PRN SL 07/06/24 06:15 Morphine Sulfate 2 mg Q30M PRN IV 07/06/24 06:15 Enoxaparin Sodium 80 mg Q12HR SC 07/06/24 10:00 07/06/24 11:13 80 MG Laboratory Results Laboratory Tests 07/05/24 22:25 07/06/24 05:58 Chemistry Test 07/05/24 22:25 07/06/24 05:58 Albumin 3.6 g/dL (3.2-4.8) Calcium Level 9.4 mg/dL (8.7-10.4) Total Protein 6.6 g/dL (5.7-8.2) Magnesium Level 1.3 mg/dL (1.6-2.6) L Lipid panel Test 07/06/24 05:58 Cholesterol Level 119 mg/dL (< 200) HDL Cholesterol 24 mg/dL (40-59) L Triglycerides Level 111 mg/dL (< 150) Cardiac Markers Test 07/05/24 22:25 B-Type Natriuretic Peptide 377.58 pg/mL (0-100) LFT Test 07/05/24 22:25 Alanine Aminotransferase (ALT) < 9 U/L (7-40) Alkaline Phosphatase 173 U/L (46-116) H Aspartate Amino Transferase (AST) 22 U/L (13-40) Total Bilirubin 0.8 mg/dL (0.2-1.0) HgA1c, TSH Test 07/06/24 05:58 Hemoglobin A1c 5.1 % A1C (<5.7) Thyroid Stimulating Hormone (TSH) 0.98 uIU/mL (0.55-4.78) Urinalysis Test 07/06/24 08:45 Urine Color Yellow (Yellow) Urine Clarity Clear (Clear) Urine pH 6.0 (5.0-9.0) Urine Specific [place] 1.018 (1.001-1.035) Urine Protein Trace (Negative) H Urine Ketones Trace (Negative) Urine Blood 1+ /uL (Negative) H Urine Nitrite Negative (Negative) Urine Bilirubin Negative (Negative) Urine Urobilinogen Normal mg/dL (Negative) Urine Leukocyte Esterase Negative /uL (Negative) Urine RBC 7 /hpf (0 - 3) Urine Microscopic WBC 13 /HPF (0-3) H Urine Squamous Epithelial Cells None seen /hpf (<5) Urine Bacteria Few /hpf (None Seen) H Urine Hyaline Casts Few /lpf (0 - 2) Urine Glucose Normal mg/dL (Normal) Labs and/or images reviewed: Labs reviewed by me, Image(s) reviewed by me Assessment/Plan Assessment/Plan Acute Metabolic encephalopathy Acute Hypotension with blood pressure 69/40, Levophed Atrial fibrillation Altered mental status Generalized weakness History of ground level fall Right lower lobe pneumonia: Vancomycin Rocephin: Blood cultures UTI: Rocephin urine culture Patient is on hospice Hypertension Dementia CT head negative Plan discussed with: Patient My Orders Orders - PAM STEPHEN MD Procedure Category Date Status Time Urine Bacterial MYRIAM 07/06/24 Logged Culture 14:24 Date of Service: July 06, 2024 Billing Provider: PAM STEPHEN MD Common Visit Codes: [id number] INP/OBS CARE(HIGH) PAM STEPHEN MD July 06, 2024 14:29
[2024-07-06] MEDS: SODIUM CHLORIDE 0.9% 1,000 ML IV SCH (15:11)
[2024-07-06] MEDS: VANCOMYCIN 750MG KIT 100 ML IV SCH (18:39)
[2024-07-07] VITALS (37 sets, daily range): BP systolic 95–129; BP diastolic 58–80; PULSE 79–105; RESP 10–16; TEMP 97.4–98.9; O2SAT 96–100
[2024-07-07] MEDS: NOREPINEPHRINE 8 MG/250ML KIT 250 ML IV SCH
[2024-07-07] MEDS: HYDROcodone-ACET 5/325MG TAB PO PRN (02:37)
[2024-07-07 03:38] LABS: Basophils # (auto) 0 10 ^3/uL (0-0.2); Basophils % (auto) 0.4 % (0.0-2.0); Eosinophils # (auto) 0.1 10 ^3/uL (0-0.8); Eosinophils % (auto) 0.7 % (0.0-7.0); Hematocrit 37.6 % (41.0-53.0); Hemoglobin 12.4 g/dL (13.5-17.5); Lymphocytes # (auto) 0.4 10 ^3/uL (0.4-5.4); Lymphocytes % (auto) 4.4 % (10.0-50.0); Mean Corpuscular Hemoglobin 31.2 pg (28.0-32.0); Mean Corpuscular Volume 94.6 fL (80.0-100.0); Monocytes # (auto) 0.5 10 ^3/uL (0-1.3); Monocytes % (auto) 5.5 % (0.0-12.0); Neutrophils # (auto) 7.7 10 ^3/uL (1.6-8.6); Platelet Count (auto) 164 10^3/uL (140-450); Red Blood Cells 3.98 10^6/uL (4.5-5.90); Red Cell Distribution Width 14.9 % (11.8-14.3); White Blood Cell 8.6 10^3/uL (4.4-10.8)
[2024-07-07 04:00] LABS: Anion Gap 6 (5-15); Aspartate Aminotransferase 14 U/L (13-40); BUN/Creatinine Ratio 21.1 (10.0-20.0); Bilirubin, Total 0.5 mg/dL (0.2-1.0); Blood Urea Nitrogen 12 mg/dL (9-23); Calcium 8.7 mg/dL (8.7-10.4); Carbon Dioxide 26 mmol/L (20-31); Chloride 102 mmol/L (98-107)
[2024-07-07 04:01] LABS: Alanine Aminotransferase < 9 U/L (7-40); Albumin 2.9 g/dL (3.2-4.8); Alkaline Phosphatase 121 U/L (46-116); Glucose 128 mg/dL (74-106); Potassium 3.2 mmol/L (3.5-5.1); Sodium 134 mmol/L (136-145); Total Protein 5.3 g/dL (5.7-8.2)
[2024-07-07] MEDS ORDERED: POTASSIUM CHL 20MEQ/100ML 100 ML IV ONE (04:15)
[2024-07-07] MEDS: POTASSIUM CHL 20MEQ/50ML 50 ML IV ONE (04:23)
[2024-07-07] MEDS: SODIUM CHL 0.9% 100 ML IV ONE (04:38)
--- NOTE | 2024-07-07 14:47 | DVHPN2 ---
Reviewed: Care Plan, H&P, Labs, Medications, Previous Orders, Radiology Changes from previous H/P or p: No Changes Eyes: No Pain, No Vision change, No Conjunctivae inflammation, No Eyelid inflammation, No Other, No Redness ENT: No Ear pain, No Ear discharge, No Nose pain, No Nose discharge, No Nose congestion, No Mouth pain, No Mouth swelling, No Throat pain, No Throat swelling, No Other Cardiovascular: No Chest Pain, No Palpitations, No Orthopnea, No Paroxysmal Noc. Dyspnea, No Edema, No Lt Headedness, No Other Respiratory: No Cough, No Dry, No Shortness of breath, No SOB with excertion, No Wheezing, No Hemoptysis, No Pleuritic Pain, No Sputum, No Other Gastrointestinal: No Nausea, No Vomiting, No Abdominal Pain, No Diarrhea, No Constipation, No Melena, No Hematochezia, No Other Genitourinary: No Dysuria, No Frequency, No Incontinence, No Hematuria, No Retention; Other (Crum catheter in place) Musculoskeletal: No other, No neck pain, No shoulder pain, No arm pain, No back pain, No hand pain, No leg pain, No foot pain Skin: No Rash, No Lesions, No Jaundice, No Bruising, No Other Objective Vitals Vital Signs Date Time Temp Pulse Resp B/P (MAP) Pulse Ox O2 Delivery O2 Flow Rate FiO2 07/07/24 12:20 85 07/07/24 12:00 12 118/76 (90) 100 07/07/24 10:58 97.8 97.8 07/07/24 08:00 Nasal Cannula* 2 28 Intake/Output Intake and Output 07/07/24 07:00 Intake Total 4225.653 ml Output Total 650 ml Balance 3575.653 ml Intake Oral 900 ml IV Total 3325.653 ml Output Urine Total 650 ml # Bowel Movements 1 Medications Current Medications Medications Dose Ordered Sig/Dianna Route Start Time Stop Time Status Last Admin Dose Admin Ceftriaxone Sodium 50 ml @ 100 mls/hr DAILY@09 IV 07/06/24 09:00 07/07/24 09:12 100 MLS/HR Vancomycin HCl 0 ml @ 0 mls/hr UD IV 07/06/24 02:00 Aspirin 81 mg DAILY PO 07/06/24 10:00 07/07/24 09:12 81 MG Diagnostic Test (Pha) 1 strip ACHS 5/4/25 07:00 07/07/24 10:45 1 STRIP Insulin Human Regular ACHS SC 07/06/24 07:00 07/06/24 21:37 2 UNITS Dextrose 50 ml UD PRN IV 07/06/24 02:00 Sodium Chloride 10 ml Q8HR IV 07/06/24 06:00 07/07/24 13:22 10 ML Acetaminophen/ Hydrocodone Bitart 1 tab Q4HP PRN PO 07/06/24 02:00 07/07/24 02:37 1 TAB Ondansetron HCl 4 mg Q4HP PRN IV 07/06/24 02:00 Docusate Sodium 100 mg BIDPRN PRN PO 07/06/24 02:00 Acetaminophen 650 mg Q6HP PRN PO 07/06/24 02:00 Nitroglycerin 0.4 mg Q5MINP PRN SL 07/06/24 06:15 Morphine Sulfate 2 mg Q30M PRN IV 07/06/24 06:15 Enoxaparin Sodium 80 mg Q12HR SC 07/06/24 10:00 07/07/24 09:13 80 MG Sodium Chloride 1,000 ml @ 150 mls/hr Q6H40M IV 07/06/24 15:00 07/07/24 11:08 150 MLS/HR Vancomycin HCl 100 ml @ 100 mls/hr Q12H IV 07/06/24 18:00 07/07/24 07:49 100 MLS/HR Laboratory Results Laboratory Tests 07/07/24 03:15 Chemistry Test 07/07/24 03:15 Albumin 2.9 g/dL (3.2-4.8) L Calcium Level 8.7 mg/dL (8.7-10.4) Total Protein 5.3 g/dL (5.7-8.2) L LFT Test 07/07/24 03:15 Alanine Aminotransferase (ALT) < 9 U/L (7-40) Alkaline Phosphatase 121 U/L (46-116) H Aspartate Amino Transferase (AST) 14 U/L (13-40) Total Bilirubin 0.5 mg/dL (0.2-1.0) Urinalysis Test 07/06/24 08:45 Urine Color Yellow (Yellow) Urine Clarity Clear (Clear) Urine pH 6.0 (5.0-9.0) Urine Specific [place] 1.018 (1.001-1.035) Urine Protein Trace (Negative) H Urine Ketones Trace (Negative) Urine Blood 1+ /uL (Negative) H Urine Nitrite Negative (Negative) Urine Bilirubin Negative (Negative) Urine Urobilinogen Normal mg/dL (Negative) Urine Leukocyte Esterase Negative /uL (Negative) Urine RBC 7 /hpf (0 - 3) Urine Microscopic WBC 13 /HPF (0-3) H Urine Squamous Epithelial Cells None seen /hpf (<5) Urine Bacteria Few /hpf (None Seen) H Urine Hyaline Casts Few /lpf (0 - 2) Urine Glucose Normal mg/dL (Normal) Microbiology Microbiology Date/Time Source Procedure Growth Status 07/06/24 08:45 Voided Urine Urine Culture - Preliminary Resulted 07/05/24 22:25 Blood Blood Culture - Preliminary NO GROWTH AFTER 24 HOURS OF INCUBATION. Resulted Labs and/or images reviewed: Labs reviewed by me, Image(s) reviewed by me Assessment/Plan Assessment/Plan Acute Metabolic encephalopathy Septic Shock with Acute Hypotension with blood pressure 69/40, Levophed Atrial fibrillation Altered mental status Generalized weakness History of ground level fall Right lower lobe pneumonia: Vancomycin Rocephin: Blood cultures negative UTI: Rocephin urine culture pending Patient is hospice revoked Hypertension Dementia CT head negative Time Spent 70 minutes Advanced care planning time 20 minutes Patient is DNR Plan discussed with: Patient My Orders Orders - PAM STEPHEN MD Procedure Category Date Status Time Sodium Chloride 0.9% PHA 07/06/24 In Process 15:00 Code Status CODE 07/06/24 Transmitted 14:49 Date of Service: July 07, 2024 Billing Provider: PAM STEPHEN MD Common Visit Codes: [id number] CARE 30-74 MIN PAM STEPHEN MD July 07, 2024 14:47
[2024-07-08] VITALS (8 sets, daily range): BP systolic 109–136; BP diastolic 69–88; PULSE 75–91; RESP 16–18; TEMP 97.7–98.7; O2SAT 96–99
[2024-07-08 07:08] LABS: Basophils # (auto) 0 10 ^3/uL (0-0.2); Basophils % (auto) 0.5 % (0.0-2.0); Eosinophils # (auto) 0.1 10 ^3/uL (0-0.8); Eosinophils % (auto) 1.6 % (0.0-7.0); Hematocrit 35.7 % (41.0-53.0); Hemoglobin 12.1 g/dL (13.5-17.5); Lymphocytes # (auto) 0.5 10 ^3/uL (0.4-5.4); Lymphocytes % (auto) 7.2 % (10.0-50.0); Mean Corpuscular Hemoglobin 31.7 pg (28.0-32.0); Mean Corpuscular Hgb Conc. 33.9 g/dL (32.0-36.0); Mean Corpuscular Volume 93.5 fL (80.0-100.0); Monocytes # (auto) 0.4 10 ^3/uL (0-1.3); Monocytes % (auto) 6.4 % (0.0-12.0); Neutrophils # (auto) 5.8 10 ^3/uL (1.6-8.6); Neutrophils % (auto) 84.3 % (37.0-80.0); Nucleated Red Blood Cells % 0.2 %; Platelet Count (auto) 177 10^3/uL (140-450); Red Blood Cells 3.82 10^6/uL (4.5-5.90); Red Cell Distribution Width 15.2 % (11.8-14.3); White Blood Cell 6.9 10^3/uL (4.4-10.8)
--- NOTE | 2024-07-08 10:24 | DVHPN2 ---
Reviewed: Care Plan, H&P, Labs, Medications, Previous Orders, Radiology Changes from previous H/P or p: No Changes Eyes: No Pain, No Vision change, No Conjunctivae inflammation, No Eyelid inflammation, No Other, No Redness ENT: No Ear pain, No Ear discharge, No Nose pain, No Nose discharge, No Nose congestion, No Mouth pain, No Mouth swelling, No Throat pain, No Throat swelling, No Other Cardiovascular: No Chest Pain, No Palpitations, No Orthopnea, No Paroxysmal Noc. Dyspnea, No Edema, No Lt Headedness, No Other Respiratory: No Cough, No Dry, No Shortness of breath, No SOB with excertion, No Wheezing, No Hemoptysis, No Pleuritic Pain, No Sputum, No Other Gastrointestinal: No Nausea, No Vomiting, No Abdominal Pain, No Diarrhea, No Constipation, No Melena, No Hematochezia, No Other Genitourinary: No Dysuria, No Frequency, No Incontinence, No Hematuria, No Retention; Other (Crum catheter in place) Musculoskeletal: No other, No neck pain, No shoulder pain, No arm pain, No back pain, No hand pain, No leg pain, No foot pain Skin: No Rash, No Lesions, No Jaundice, No Bruising, No Other Objective Vitals Vital Signs Date Time Temp Pulse Resp B/P (MAP) Pulse Ox O2 Delivery O2 Flow Rate FiO2 07/08/24 09:00 98.1 81 17 123/69 (87) 99 98.1 07/07/24 20:00 Room Air* 0 21 Intake/Output Intake and Output 07/08/24 07:00 Intake Total 2616.62 ml Output Total 700 ml Balance 1916.62 ml Intake Oral 200 ml IV Total 2416.62 ml Output Urine Total 700 ml Medications Current Medications Medications Dose Ordered Sig/Dianna Route Start Time Stop Time Status Last Admin Dose Admin Ceftriaxone Sodium 50 ml @ 100 mls/hr DAILY@09 IV 07/06/24 09:00 07/08/24 09:50 100 MLS/HR Vancomycin HCl 0 ml @ 0 mls/hr UD IV 07/06/24 02:00 Aspirin 81 mg DAILY PO 07/06/24 10:00 07/08/24 09:51 81 MG Diagnostic Test (Pha) 1 strip ACHS 07/06/24 07:00 07/08/24 06:36 1 STRIP Insulin Human Regular ACHS SC 07/06/24 07:00 07/07/24 22:00 2 UNITS Dextrose 50 ml UD PRN IV 07/06/24 02:00 Sodium Chloride 10 ml Q8HR IV 07/06/24 06:00 07/08/24 05:50 10 ML Acetaminophen/ Hydrocodone Bitart 1 tab Q4HP PRN PO 07/06/24 02:00 07/07/24 23:10 1 TAB Ondansetron HCl 4 mg Q4HP PRN IV 07/06/24 02:00 Docusate Sodium 100 mg BIDPRN PRN PO 07/06/24 02:00 Acetaminophen 650 mg Q6HP PRN PO 07/06/24 02:00 Nitroglycerin 0.4 mg Q5MINP PRN SL 07/06/24 06:15 Morphine Sulfate 2 mg Q30M PRN IV 07/06/24 06:15 Enoxaparin Sodium 80 mg Q12HR SC 07/06/24 10:00 07/08/24 09:51 80 MG Sodium Chloride 1,000 ml @ 150 mls/hr Q6H40M IV 07/06/24 15:00 07/08/24 06:24 150 MLS/HR Vancomycin HCl 100 ml @ 100 mls/hr Q12H IV 07/06/24 18:00 07/08/24 06:23 100 MLS/HR Laboratory Results Laboratory Tests 07/07/24 03:15 07/08/24 06:15 Urinalysis Test 07/06/24 08:45 Urine Color Yellow (Yellow) Urine Clarity Clear (Clear) Urine pH 6.0 (5.0-9.0) Urine Specific [place] 1.018 (1.001-1.035) Urine Protein Trace (Negative) H Urine Ketones Trace (Negative) Urine Blood 1+ /uL (Negative) H Urine Nitrite Negative (Negative) Urine Bilirubin Negative (Negative) Urine Urobilinogen Normal mg/dL (Negative) Urine Leukocyte Esterase Negative /uL (Negative) Urine RBC 7 /hpf (0 - 3) Urine Microscopic WBC 13 /HPF (0-3) H Urine Squamous Epithelial Cells None seen /hpf (<5) Urine Bacteria Few /hpf (None Seen) H Urine Hyaline Casts Few /lpf (0 - 2) Urine Glucose Normal mg/dL (Normal) Microbiology Microbiology Date/Time Source Procedure Growth Status 07/06/24 08:45 Voided Urine Urine Culture - Preliminary Resulted 07/05/24 22:25 Blood Blood Culture - Preliminary NO GROWTH AFTER 48 HOURS OF INCUBATION. Resulted Labs and/or images reviewed: Labs reviewed by me, Image(s) reviewed by me Assessment/Plan Assessment/Plan Acute Metabolic encephalopathy Septic Shock secondary to urinary tract infection with Acute Hypotension with blood pressure 69/40, resolved with Levophed, blood pressure now normal Atrial fibrillation Altered mental status Acute Hypokalemia: Replace potassium Generalized weakness History of ground level fall Right lower lobe pneumonia: Vancomycin Rocephin: Blood cultures negative UTI: Rocephin urine culture pending Patient is hospice revoked Hypertension Dementia CT head negative Time Spent 50 minutes Advanced care planning time 20 minutes Patient is DNR Plan discussed with: Patient Date of Service: July 08, 2024 Billing Provider: PAM STEPHEN MD Common Visit Codes: [id number] INP/OBS CARE(HIGH) PAM STEPHEN MD July 08, 2024 10:24
[2024-07-08 11:04] LABS: Chloride 103 mmol/L (98-107)
[2024-07-08 11:05] LABS: Anion Gap 9 (5-15); Carbon Dioxide 23 mmol/L (20-31)
[2024-07-08 11:10] LABS: BUN/Creatinine Ratio 20.5 (10.0-20.0)
[2024-07-08 11:19] LABS: Blood Urea Nitrogen 9 mg/dL (9-23); Calcium 8.6 mg/dL (8.7-10.4); Glucose 110 mg/dL (74-106); Potassium 3.2 mmol/L (3.5-5.1); Sodium 135 mmol/L (136-145)
[2024-07-08 11:56] LABS: Basophils # (auto) 0 10 ^3/uL (0-0.2); Basophils % (auto) 0.1 % (0.0-2.0); Eosinophils # (auto) 0.1 10 ^3/uL (0-0.8); Eosinophils % (auto) 1.3 % (0.0-7.0); Hematocrit 34.3 % (41.0-53.0); Hemoglobin 11.7 g/dL (13.5-17.5); Lymphocytes # (auto) 0.5 10 ^3/uL (0.4-5.4); Lymphocytes % (auto) 6.1 % (10.0-50.0); Mean Corpuscular Volume 94.1 fL (80.0-100.0); Monocytes # (auto) 0.5 10 ^3/uL (0-1.3); Monocytes % (auto) 6.5 % (0.0-12.0); Neutrophils # (auto) 6.9 10 ^3/uL (1.6-8.6); Platelet Count (auto) 179 10^3/uL (140-450); Red Blood Cells 3.65 10^6/uL (4.5-5.90); Red Cell Distribution Width 15.2 % (11.8-14.3)
[2024-07-08] MEDS: POTASSIUM EFFERVESENT TAB 25 MEQ PO ONE ×2 (14:09→21:59)
[2024-07-08] MEDS ORDERED: POTASSIUM EFFERVESENT TAB 25 MEQ PO SCH (18:00)
[2024-07-08] MEDS ORDERED: POTASSIUM EFFERVESENT TAB 25 MEQ PO ONE (18:00)
[2024-07-08] MEDS: VANCOMYCIN 1.25GM/250ML 250 ML IV SCH (18:16)
[2024-07-09] VITALS (8 sets, daily range): BP systolic 114–139; BP diastolic 54–82; PULSE 80–98; RESP 16–18; TEMP 97.4–98; O2SAT 94–100
[2024-07-09] MEDS: AMIODARONE 360mg/200mL PREMIX 200 ML IV SCH (00:52)
[2024-07-09 06:24] LABS: Basophils # (auto) 0 10 ^3/uL (0-0.2); Basophils % (auto) 0.3 % (0.0-2.0); Eosinophils # (auto) 0 10 ^3/uL (0-0.8); Eosinophils % (auto) 0.3 % (0.0-7.0); Hematocrit 37.1 % (41.0-53.0); Hemoglobin 12.6 g/dL (13.5-17.5); Lymphocytes # (auto) 0.4 10 ^3/uL (0.4-5.4); Lymphocytes % (auto) 4.6 % (10.0-50.0); Mean Corpuscular Hemoglobin 31.8 pg (28.0-32.0); Mean Corpuscular Hgb Conc. 33.9 g/dL (32.0-36.0); Mean Corpuscular Volume 93.7 fL (80.0-100.0); Monocytes # (auto) 0.6 10 ^3/uL (0-1.3); Monocytes % (auto) 6.8 % (0.0-12.0); Neutrophils # (auto) 7.7 10 ^3/uL (1.6-8.6); Nucleated Red Blood Cells % 0.1 %; Platelet Count (auto) 213 10^3/uL (140-450); Red Blood Cells 3.96 10^6/uL (4.5-5.90); Red Cell Distribution Width 15.3 % (11.8-14.3); White Blood Cell 8.7 10^3/uL (4.4-10.8)
[2024-07-09 08:26] LABS: Chloride 104 mmol/L (98-107); Sodium 137 mmol/L (136-145)
[2024-07-09 08:27] LABS: Carbon Dioxide 21 mmol/L (20-31)
[2024-07-09 08:37] LABS: BUN/Creatinine Ratio 12.5 (10.0-20.0); Blood Urea Nitrogen < 5 mg/dL (9-23); Calcium 8.6 mg/dL (8.7-10.4); Glucose 123 mg/dL (74-106); Potassium 3.4 mmol/L (3.5-5.1)
--- NOTE | 2024-07-09 09:28 | DVHPN2 ---
Reviewed: Care Plan, H&P, Labs, Medications, Previous Orders, Radiology Changes from previous H/P or p: No Changes Eyes: No Pain, No Vision change, No Conjunctivae inflammation, No Eyelid inflammation, No Other, No Redness ENT: No Ear pain, No Ear discharge, No Nose pain, No Nose discharge, No Nose congestion, No Mouth pain, No Mouth swelling, No Throat pain, No Throat swelling, No Other Cardiovascular: No Chest Pain, No Palpitations, No Orthopnea, No Paroxysmal Noc. Dyspnea, No Edema, No Lt Headedness, No Other Respiratory: No Cough, No Dry, No Shortness of breath, No SOB with excertion, No Wheezing, No Hemoptysis, No Pleuritic Pain, No Sputum, No Other Gastrointestinal: No Nausea, No Vomiting, No Abdominal Pain, No Diarrhea, No Constipation, No Melena, No Hematochezia, No Other Genitourinary: No Dysuria, No Frequency, No Incontinence, No Hematuria, No Retention; Other (Crum catheter in place) Musculoskeletal: No other, No neck pain, No shoulder pain, No arm pain, No back pain, No hand pain, No leg pain, No foot pain Skin: No Rash, No Lesions, No Jaundice, No Bruising, No Other Objective Vitals Vital Signs Date Time Temp Pulse Resp B/P (MAP) Pulse Ox O2 Delivery O2 Flow Rate FiO2 07/09/24 08:48 97.5 89 18 139/55 (83) 94 97.5 07/08/24 20:00 Room Air* 0 21 Intake/Output Intake and Output 07/09/24 07:00 Intake Total 1850 ml Output Total 2025 ml Balance -175 ml Intake Oral 1250 ml IV Total 600 ml Output Urine Total 2025 ml # Bowel Movements 8 Medications Current Medications Medications Dose Ordered Sig/Dianna Route Start Time Stop Time Status Last Admin Dose Admin Ceftriaxone Sodium 50 ml @ 100 mls/hr DAILY@09 IV 07/06/24 09:00 07/08/24 09:50 100 MLS/HR Vancomycin HCl 0 ml @ 0 mls/hr UD IV 07/06/24 02:00 Aspirin 81 mg DAILY PO 07/06/24 10:00 07/08/24 09:51 81 MG Diagnostic Test (Pha) 1 strip ACHS 07/06/24 07:00 07/09/24 06:42 1 STRIP Insulin Human Regular ACHS SC 07/06/24 07:00 07/07/24 22:00 2 UNITS Dextrose 50 ml UD PRN IV 07/06/24 02:00 Sodium Chloride 10 ml Q8HR IV 07/06/24 06:00 07/09/24 06:42 10 ML Acetaminophen/ Hydrocodone Bitart 1 tab Q4HP PRN PO 07/06/24 02:00 07/07/24 23:10 1 TAB Ondansetron HCl 4 mg Q4HP PRN IV 07/06/24 02:00 Docusate Sodium 100 mg BIDPRN PRN PO 07/06/24 02:00 Acetaminophen 650 mg Q6HP PRN PO 07/06/24 02:00 Nitroglycerin 0.4 mg Q5MINP PRN SL 07/06/24 06:15 Morphine Sulfate 2 mg Q30M PRN IV 07/06/24 06:15 Enoxaparin Sodium 80 mg Q12HR SC 07/06/24 10:00 07/08/24 22:01 80 MG Sodium Chloride 1,000 ml @ 150 mls/hr Q6H40M IV 07/06/24 15:00 07/09/24 03:39 150 MLS/HR Vancomycin HCl 250 ml @ 200 mls/hr Q12H IV 07/08/24 18:00 07/09/24 06:41 200 MLS/HR Laboratory Results Laboratory Tests 07/09/24 05:46 Chemistry Test 07/09/24 05:46 Calcium Level 8.6 mg/dL (8.7-10.4) L Urinalysis Test 07/06/24 08:45 Urine Color Yellow (Yellow) Urine Clarity Clear (Clear) Urine pH 6.0 (5.0-9.0) Urine Specific [place] 1.018 (1.001-1.035) Urine Protein Trace (Negative) H Urine Ketones Trace (Negative) Urine Blood 1+ /uL (Negative) H Urine Nitrite Negative (Negative) Urine Bilirubin Negative (Negative) Urine Urobilinogen Normal mg/dL (Negative) Urine Leukocyte Esterase Negative /uL (Negative) Urine RBC 7 /hpf (0 - 3) Urine Microscopic WBC 13 /HPF (0-3) H Urine Squamous Epithelial Cells None seen /hpf (<5) Urine Bacteria Few /hpf (None Seen) H Urine Hyaline Casts Few /lpf (0 - 2) Urine Glucose Normal mg/dL (Normal) Microbiology Microbiology Date/Time Source Procedure Growth Status 07/06/24 08:45 Voided Urine Urine Culture - Final Enterococcus faecalis Complete 07/05/24 22:25 Blood Blood Culture - Preliminary NO GROWTH AFTER 72 HOURS OF INCUBATION. Resulted Labs and/or images reviewed: Labs reviewed by me, Image(s) reviewed by me Assessment/Plan Assessment/Plan Acute Metabolic encephalopathy Septic Shock secondary to urinary tract infection with E faecalis, DC vancomycin and Rocephin start Zyvox 600 mg IV q.12 hrs Atrial fibrillation Altered mental status Acute Hypokalemia: Replace potassium Generalized weakness History of ground level fall Right lower lobe pneumonia: DC vancomycin and Rocephin start doxycycline 100 mg IV q.12h UTI: E faecalis: Zyvox Patient is hospice revoked Hypertension Dementia CT head negative Time Spent 50 minutes Advanced care planning time 20 minutes Patient is DNR Plan discussed with: Patient My Orders Orders - PAM STEPHEN MD Procedure Category Date Status Time Pt Request For Service PT 07/08/24 Logged 10:39 Potassium Effervesent PHA 07/09/24 In Process Tab (Klor-Con/Ef) 10:00 Basic Metabolic Panel LAB 07/09/24 In Process 07:11 Linzeolid 600 Mg Ivpb PHA 07/09/24 Verified 10:00 Date of Service: July 09, 2024 Billing Provider: PAM STEPHEN MD Common Visit Codes: [id number] INP/OBS CARE(HIGH) PAM STEPHEN MD July 09, 2024 09:28
[2024-07-09 09:43] LABS: Anion Gap 12 (5-15)
[2024-07-09] MEDS ORDERED: POTASSIUM EFFERVESENT TAB 25 MEQ PO ONE (10:00)
[2024-07-09] MEDS ORDERED: POTASSIUM EFFERVESENT TAB 25 MEQ PO SCH (10:00)
[2024-07-09] MEDS: LINEZOLID 600MG/300ML 300 ML IV SCH (10:01)
[2024-07-09] MEDS: POTASSIUM EFFERVESENT TAB 25 MEQ PO ONE (10:01)
[2024-07-09] MEDS ORDERED: DOXYCYCLINE 100MG/100ML 100 ML IV SCH (12:00)
[2024-07-09] MEDS: AZITHROMYCIN 500MG/ 250ML 250 ML IV SCH (12:06)
[2024-07-10] VITALS (9 sets, daily range): BP systolic 101–128; BP diastolic 74–96; PULSE 70–101; RESP 17–18; TEMP 97.2–98.7; O2SAT 97–100
--- NOTE | 2024-07-10 10:09 | DVHPN2 ---
Reviewed: Care Plan, H&P, Labs, Medications, Previous Orders, Radiology Changes from previous H/P or p: No Changes Eyes: No Pain, No Vision change, No Conjunctivae inflammation, No Eyelid inflammation, No Other, No Redness ENT: No Ear pain, No Ear discharge, No Nose pain, No Nose discharge, No Nose congestion, No Mouth pain, No Mouth swelling, No Throat pain, No Throat swelling, No Other Cardiovascular: No Chest Pain, No Palpitations, No Orthopnea, No Paroxysmal Noc. Dyspnea, No Edema, No Lt Headedness, No Other Respiratory: No Cough, No Dry, No Shortness of breath, No SOB with excertion, No Wheezing, No Hemoptysis, No Pleuritic Pain, No Sputum, No Other Gastrointestinal: No Nausea, No Vomiting, No Abdominal Pain, No Diarrhea, No Constipation, No Melena, No Hematochezia, No Other Genitourinary: No Dysuria, No Frequency, No Incontinence, No Hematuria, No Retention; Other (Crum catheter in place) Musculoskeletal: No other, No neck pain, No shoulder pain, No arm pain, No back pain, No hand pain, No leg pain, No foot pain Skin: No Rash, No Lesions, No Jaundice, No Bruising, No Other Objective Vitals Vital Signs Date Time Temp Pulse Resp B/P (MAP) Pulse Ox O2 Delivery O2 Flow Rate FiO2 07/10/24 09:00 97.9 99 18 120/74 (89) 98 97.9 07/09/24 20:00 Room Air* 0 21 Intake/Output Intake and Output 07/10/24 07:00 Intake Total 3167.62 ml Output Total 900 ml Balance 2267.62 ml Intake Oral 885 ml IV Total 2282.62 ml Output Urine Total 900 ml # Bowel Movements 5 Medications Current Medications Medications Dose Ordered Sig/Dianna Route Start Time Stop Time Status Last Admin Dose Admin Aspirin 81 mg DAILY PO 07/06/24 10:00 07/09/24 10:02 81 MG Diagnostic Test (Pha) 1 strip ACHS 07/06/24 07:00 07/10/24 05:51 1 STRIP Insulin Human Regular ACHS SC 07/06/24 07:00 07/09/24 22:27 2 UNITS Dextrose 50 ml UD PRN IV 07/06/24 02:00 Sodium Chloride 10 ml Q8HR IV 07/06/24 06:00 5/8/25 05:44 10 ML Acetaminophen/ Hydrocodone Bitart 1 tab Q4HP PRN PO 07/06/24 02:00 07/10/24 08:14 1 TAB Ondansetron HCl 4 mg Q4HP PRN IV 07/06/24 02:00 Docusate Sodium 100 mg BIDPRN PRN PO 07/06/24 02:00 Acetaminophen 650 mg Q6HP PRN PO 07/06/24 02:00 Nitroglycerin 0.4 mg Q5MINP PRN SL 07/06/24 06:15 Morphine Sulfate 2 mg Q30M PRN IV 07/06/24 06:15 Enoxaparin Sodium 80 mg Q12HR SC 07/06/24 10:00 07/09/24 22:19 80 MG Sodium Chloride 1,000 ml @ 150 mls/hr Q6H40M IV 07/06/24 15:00 07/10/24 06:15 150 MLS/HR Linezolid 300 ml @ 150 mls/hr Q12HR IV 07/09/24 10:00 07/09/24 22:19 150 MLS/HR Azithromycin 250 ml @ 125 mls/hr DAILY@1200 IV 07/09/24 12:00 07/09/24 12:06 125 MLS/HR Alprazolam 1 mg TID PO 07/10/24 11:00 UNV Laboratory Results Laboratory Tests 07/09/24 05:46 Urinalysis Test 07/06/24 08:45 Urine Color Yellow (Yellow) Urine Clarity Clear (Clear) Urine pH 6.0 (5.0-9.0) Urine Specific [place] 1.018 (1.001-1.035) Urine Protein Trace (Negative) H Urine Ketones Trace (Negative) Urine Blood 1+ /uL (Negative) H Urine Nitrite Negative (Negative) Urine Bilirubin Negative (Negative) Urine Urobilinogen Normal mg/dL (Negative) Urine Leukocyte Esterase Negative /uL (Negative) Urine RBC 7 /hpf (0 - 3) Urine Microscopic WBC 13 /HPF (0-3) H Urine Squamous Epithelial Cells None seen /hpf (<5) Urine Bacteria Few /hpf (None Seen) H Urine Hyaline Casts Few /lpf (0 - 2) Urine Glucose Normal mg/dL (Normal) Microbiology Microbiology Date/Time Source Procedure Growth Status 07/06/24 08:45 Voided Urine Urine Culture - Final Enterococcus faecalis Complete 07/05/24 22:25 Blood Blood Culture - Preliminary NO GROWTH AFTER 72 HOURS OF INCUBATION. Resulted Labs and/or images reviewed: Labs reviewed by me, Image(s) reviewed by me Assessment/Plan Assessment/Plan Acute Metabolic encephalopathy Septic Shock secondary to urinary tract infection with E faecalis, continue Zyvox 600 mg IV q.12 hrs Atrial fibrillation Altered mental status Acute Hypokalemia: Replace potassium Generalized weakness History of ground level fall Right lower lobe pneumonia: Azithromycin 500 mg IV daily UTI: E faecalis: Zyvox Patient is hospice revoked Hypertension Dementia CT head negative Time Spent 50 minutes Advanced care planning time 20 minutes Patient is DNR Plan discussed with: Patient My Orders Orders - PAM STEPHEN MD Procedure Category Date Status Time Covid19 Antigen [place] LAB 07/10/24 Logged Alprazolam Tablet PHA 07/10/24 Logged (Xanax Tablet) 11:00 Hydrocodone-Acet PHA 07/10/24 Verified 10/325mg Tab ([place] 10:15 Date of Service: July 10, 2024 Billing Provider: PAM STEPHEN MD Common Visit Codes: [id number] INP/OBS CARE(HIGH) PAM STEPHEN MD July 10, 2024 10:09
[2024-07-10] MEDS: ALPRAZolam 0.5 MG TAB PO SCH (11:34)
[2024-07-11] VITALS (7 sets, daily range): BP systolic 111–120; BP diastolic 78–80; PULSE 80–96; RESP 17–18; TEMP 97.5–97.6; O2SAT 96–99
[2024-07-11 02:10] LABS: COVID19 ANTIGEN SOFIA FIA NEGATIVE (NEGATIVE)
[2024-07-11] MEDS: HYDROcodone-ACET 10/325MG TAB PO PRN (05:20)
--- NOTE | 2024-07-11 09:34 | DVHPN2 ---
Reviewed: Care Plan, H&P, Labs, Medications, Previous Orders, Radiology Changes from previous H/P or p: No Changes Eyes: No Pain, No Vision change, No Conjunctivae inflammation, No Eyelid inflammation, No Other, No Redness ENT: No Ear pain, No Ear discharge, No Nose pain, No Nose discharge, No Nose congestion, No Mouth pain, No Mouth swelling, No Throat pain, No Throat swelling, No Other Cardiovascular: No Chest Pain, No Palpitations, No Orthopnea, No Paroxysmal Noc. Dyspnea, No Edema, No Lt Headedness, No Other Respiratory: No Cough, No Dry, No Shortness of breath, No SOB with excertion, No Wheezing, No Hemoptysis, No Pleuritic Pain, No Sputum, No Other Gastrointestinal: No Nausea, No Vomiting, No Abdominal Pain, No Diarrhea, No Constipation, No Melena, No Hematochezia, No Other Genitourinary: No Dysuria, No Frequency, No Incontinence, No Hematuria, No Retention; Other (Crum catheter in place) Musculoskeletal: No other, No neck pain, No shoulder pain, No arm pain, No back pain, No hand pain, No leg pain, No foot pain Skin: No Rash, No Lesions, No Jaundice, No Bruising, No Other Objective Vitals Vital Signs Date Time Temp Pulse Resp B/P (MAP) Pulse Ox O2 Delivery O2 Flow Rate FiO2 07/11/24 09:00 97.5 95 18 118/80 (93) 99 97.5 07/10/24 20:00 Room Air* 0 21 Intake/Output Intake and Output 07/11/24 07:00 Intake Total 4267.58 ml Output Total 1250 ml Balance 3017.58 ml Intake Oral 1518 ml IV Total 2749.58 ml Output Urine Total 1250 ml # Bowel Movements 1 Medications Current Medications Medications Dose Ordered Sig/Dianna Route Start Time Stop Time Status Last Admin Dose Admin Aspirin 81 mg DAILY PO 07/06/24 10:00 07/10/24 11:34 81 MG Diagnostic Test (Pha) 1 strip ACHS 07/06/24 07:00 07/10/24 21:48 1 STRIP Insulin Human Regular ACHS SC 07/06/24 07:00 07/09/24 22:27 2 UNITS Dextrose 50 ml UD PRN IV 07/06/24 02:00 Sodium Chloride 10 ml Q8HR IV 07/06/24 06:00 07/11/24 05:19 10 ML Ondansetron HCl 4 mg Q4HP PRN IV 07/06/24 02:00 Docusate Sodium 100 mg BIDPRN PRN PO 07/06/24 02:00 Acetaminophen 650 mg Q6HP PRN PO 07/06/24 02:00 Nitroglycerin 0.4 mg Q5MINP PRN SL 07/06/24 06:15 Morphine Sulfate 2 mg Q30M PRN IV 07/06/24 06:15 Enoxaparin Sodium 80 mg Q12HR SC 07/06/24 10:00 07/10/24 21:50 80 MG Sodium Chloride 1,000 ml @ 150 mls/hr Q6H40M IV 07/06/24 15:00 07/11/24 01:40 150 MLS/HR Linezolid 300 ml @ 150 mls/hr Q12HR IV 07/09/24 10:00 07/10/24 21:49 150 MLS/HR Azithromycin 250 ml @ 125 mls/hr DAILY@1200 IV 07/09/24 12:00 07/10/24 15:54 125 MLS/HR Alprazolam 1 mg TID PO 07/10/24 11:00 07/11/24 05:19 1 MG Acetaminophen/ Hydrocodone Bitart 1 tab Q6HP PRN PO 07/10/24 10:15 07/11/24 05:20 1 TAB Laboratory Results Laboratory Tests 07/09/24 05:46 Urinalysis Test 07/06/24 08:45 Urine Color Yellow (Yellow) Urine Clarity Clear (Clear) Urine pH 6.0 (5.0-9.0) Urine Specific [place] 1.018 (1.001-1.035) Urine Protein Trace (Negative) H Urine Ketones Trace (Negative) Urine Blood 1+ /uL (Negative) H Urine Nitrite Negative (Negative) Urine Bilirubin Negative (Negative) Urine Urobilinogen Normal mg/dL (Negative) Urine Leukocyte Esterase Negative /uL (Negative) Urine RBC 7 /hpf (0 - 3) Urine Microscopic WBC 13 /HPF (0-3) H Urine Squamous Epithelial Cells None seen /hpf (<5) Urine Bacteria Few /hpf (None Seen) H Urine Hyaline Casts Few /lpf (0 - 2) Urine Glucose Normal mg/dL (Normal) Microbiology Microbiology Date/Time Source Procedure Growth Status 07/06/24 08:45 Voided Urine Urine Culture - Final Enterococcus faecalis Complete 07/05/24 22:25 Blood Blood Culture - Final NO GROWTH AFTER 5 DAYS OF INCUBATION. Complete Labs and/or images reviewed: Labs reviewed by me, Image(s) reviewed by me Assessment/Plan Assessment/Plan Acute Metabolic encephalopathy Septic Shock secondary to urinary tract infection with E faecalis, continue Zyvox 600 mg IV q.12 hrs Atrial fibrillation Altered mental status Acute Hypokalemia: Replace potassium Generalized weakness History of ground level fall Right lower lobe pneumonia: Azithromycin 500 mg IV daily UTI: E faecalis: Zyvox Patient is hospice revoked Hypertension Dementia CT head negative Time Spent 52 minutes Advanced care planning time 20 minutes Patient is DNR Midline ordered Physical therapy recommended SNF placement Plan discussed with: Patient My Orders Orders - PAM STEPHEN MD Procedure Category Date Status Time Alprazolam Tablet PHA 07/10/24 In Process (Xanax Tablet) 11:00 Hydrocodone-Acet PHA 07/10/24 In Process 10/325mg Tab ([place] 10:15 Insert Midline ORDERS 07/11/24 Transmitted 09:31 Date of Service: July 11, 2024 Billing Provider: PAM STEPHEN MD Common Visit Codes: [id number] INP/OBS CARE(HIGH) PAM STEPHEN MD July 11, 2024 09:34
--- NOTE | 2024-07-11 10:08 | DVHDS2 ---
Discharge Summary Date of Admission July 06, 2024 at 06:04 Date of Discharge: July 11, 2024 Admitting Diagnosis Altered mental status and confusion Wounds: None Labs/Diagnostic Data: Laboratory Results Test 07/11/24 05:32 07/11/24 01:00 07/09/24 05:46 07/08/24 06:15 POC Glucose 94 mg/dl (70-106) SARS-CoV-2 Antigen (Rapid) Negative (NEGATIVE) White Blood Count 8.7 10^3/uL (4.4-10.8) Red Blood Count 3.96 10^6/uL (4.5-5.90) Hemoglobin 12.6 g/dL (13.5-17.5) Hematocrit 37.1 % (41.0-53.0) Mean Corpuscular Volume 93.7 fL (80.0-100.0) Mean Corpuscular Hemoglobin 31.8 pg (28.0-32.0) Mean Corpuscular Hemoglobin Concent 33.9 g/dL (32.0-36.0) Red Cell Distribution Width 15.3 % (11.8-14.3) Platelet Count 213 10^3/uL (140-450) Mean Platelet Volume 8.5 fL (6.9-10.8) Neutrophils (%) (Auto) 88.0 % (37.0-80.0) Lymphocytes (%) (Auto) 4.6 % (10.0-50.0) Monocytes (%) (Auto) 6.8 % (0.0-12.0) Eosinophils (%) (Auto) 0.3 % (0.0-7.0) Basophils (%) (Auto) 0.3 % (0.0-2.0) Neutrophils # (Auto) 7.7 10 ^3/uL (1.6-8.6) Lymphocytes # (Auto) 0.4 10 ^3/uL (0.4-5.4) Monocytes # (Auto) 0.6 10 ^3/uL (0-1.3) Eosinophils # (Auto) 0 10 ^3/uL (0-0.8) Basophils # (Auto) 0 10 ^3/uL (0-0.2) Nucleated Red Blood Cells 0.1 % Sodium Level 137 mmol/L (136-145) Potassium Level 3.4 mmol/L (3.5-5.1) Chloride Level 104 mmol/L (98-107) Carbon Dioxide Level 21 mmol/L (20-31) Anion Gap 12 (5-15) Blood Urea Nitrogen < 5 mg/dL (9-23) Creatinine 0.40 mg/dL (0.700-1.30) Glomerular Filtration Rate Calc 117 mL/min (>90) BUN/Creatinine Ratio 12.5 (10.0-20.0) Serum Glucose 123 mg/dL (74-106) Calcium Level 8.6 mg/dL (8.7-10.4) Vancomycin Level Trough 8.9 ug/mL (5-10) Test 07/07/24 03:15 07/06/24 08:45 07/06/24 05:58 07/05/24 23:15 Total Bilirubin 0.5 mg/dL (0.2-1.0) Aspartate Amino Transferase (AST) 14 U/L (13-40) Alanine Aminotransferase (ALT) < 9 U/L (7-40) Alkaline Phosphatase 121 U/L (46-116) Total Protein 5.3 g/dL (5.7-8.2) Albumin 2.9 g/dL (3.2-4.8) Urine Color Yellow (Yellow) Urine Clarity Clear (Clear) Urine pH 6.0 (5.0-9.0) Urine Specific [place] 1.018 (1.001-1.035) Urine Protein Trace (Negative) Urine Ketones Trace (Negative) Urine Blood 1+ /uL (Negative) Urine Nitrite Negative (Negative) Urine Bilirubin Negative (Negative) Urine Urobilinogen Normal mg/dL (Negative) Urine Leukocyte Esterase Negative /uL (Negative) Urine RBC 7 /hpf (0 - 3) Urine Microscopic WBC 13 /HPF (0-3) Urine Squamous Epithelial Cells None seen /hpf (<5) Urine Bacteria Few /hpf (None Seen) Urine Hyaline Casts Few /lpf (0 - 2) Urine Glucose Normal mg/dL (Normal) Hemoglobin A1c 5.1 % A1C (<5.7) Magnesium Level 1.3 mg/dL (1.6-2.6) Triglycerides Level 111 mg/dL (< 150) Cholesterol Level 119 mg/dL (< 200) LDL Cholesterol 74 mg/dL (< 100) HDL Cholesterol 24 mg/dL (40-59) Thyroid Stimulating Hormone (TSH) 0.98 uIU/mL (0.55-4.78) Random Vancomycin Level 11.9 ug/mL (5-10) Troponin I High Sensitivity 31 ng/L (</=54) Test 07/05/24 22:25 Lactic Acid Level 2.5 mmol/L (0.4-2.0) B-Type Natriuretic Peptide 377.58 pg/mL (0-100) Other Laboratory Tests 07/09/24 05:46 Brief Hx & Hospital Course: 73-year-old male on hospice burden by family for altered mental status and confusion found to be in septic shock secondary to urinary tract infection with E faecalis started on Rocephin converted to Zyvox 600 mg IV q.12h for two weeks after the urine culture reports came back. Also has a right lower lobe pneumonia treated with azithromycin history of AFib hypertension dementia. CT head is negative patient had a ground level fall. At the time of discharge patient is alert awake oriented x3. Patient is DNR. Spoke with the patient's son Júnior [phone] and he is requesting patient to be discharged to long term facility for two weeks of IV antibiotics Consults/Reason for consult None Operations or Procedures None Condition at Discharge: Fair Final Diagnosis/Problems List Acute Metabolic encephalopathy Septic Shock secondary to urinary tract infection with E faecalis, continue Zyvox 600 mg IV q.12 hrs Atrial fibrillation Altered mental status Acute Hypokalemia: Replace potassium Generalized weakness History of ground level fall Right lower lobe pneumonia: Azithromycin 500 mg IV daily UTI: E faecalis: Zyvox Patient is hospice revoked Hypertension Dementia CT head negative Discharge Disposition: Detention Facility Discharge Instruct/Medications Diet: Cardiac 2g Na,low cholest Activity: Light activity Follow Up/Referral: Follow up with the custodial Medications: Zyvox 600 mg IV Q 12 hours for two weeks for complicated UTI Azithromycin 500 mg IV daily for two weeks for pneumonia 36 (Time taken for discharge summary 36 minutes) Discharge Statement: "Patient was advised to return to the ER or call 911 if any headaches, dizziness, shortness of breath, chest pain, abdominal pain, bleeding, fevers, or worsening of medical condition. Patient was counseled about treatment plan, medications, possible side effects, patient�verbalized understanding. All questions were answered to the best of my ability. This discharge took greater then 30 minutes in planning, reviewing documentation, counseling the patient, and discussing with other team members." ASSESSMENT ASSESSMENT Assessment Acute Metabolic encephalopathy Septic Shock secondary to urinary tract infection with E faecalis, continue Zyvox 600 mg IV q.12 hrs Atrial fibrillation Altered mental status Acute Hypokalemia: Replace potassium Generalized weakness History of ground level fall Right lower lobe pneumonia: Azithromycin 500 mg IV daily UTI: E faecalis: Zyvox Patient is hospice revoked Hypertension Dementia CT head negative Date of Service: July 11, 2024 Billing Provider: PAM STEPHEN MD Common Visit Codes: [id number] DISCH DAY >30min PAM STEPHEN MD July 11, 2024 10:08
[2024-07-11] MEDS: AMIODARONE HCL 200 MG TAB PO ONE (16:34)
[2024-07-11] MEDS: ACETAMINOPHEN 325 MG TAB PO PRN (17:17)
== END 2024-07-11 18:08 | DRG 871 ==
LOC: ER 21:56 → EDBD 21:56 → OVERFLOW 07-06 06:04 → TELE-EAST 07-07 16:19
PROVIDERS: ADMIT Family Medicine; ATTEND Family Medicine
PROC: 05H933Z Insertion of Infusion Device into Right Brachial Vein, Percutaneous Approach (ICD-10-PCS; principal; 2024-07-11)
PROC: B54MZZA Ultrasonography of Right Upper Extremity Veins, Guidance (ICD-10-PCS; 2024-07-11)
DX: A41.81 Sepsis due to Enterococcus (principal); G93.41 Metabolic encephalopathy; J18.9 Pneumonia, unspecified organism; R65.21 Severe sepsis with septic shock; N39.0 Urinary tract infection, site not specified; E11.9 Type 2 diabetes mellitus without complications; Z66 Do not resuscitate; F03.90 Unspecified dementia, unspecified severity, without behavioral disturbance, psychotic disturbance, mood disturbance, and anxiety; I10 Essential (primary) hypertension; I48.91 Unspecified atrial fibrillation; E87.6 Hypokalemia; Z85.46 Personal history of malignant neoplasm of prostate; Z79.899 Other long term (current) drug therapy
CPT/HCPCS: 36415; 70450; 71045; 80048; 80053; 80061; 80202; 81001; 82565; 82962; 83036; 83605; 83735; 83880; 84443; 84484; 85025; 87040; 87086; 87088; 87186; 87426; 93005; 93306; 96361; 96365; 97110; 97163; 97530; 99291; 99292; G0378; J0692; J1815